=== PATIENT | female | born 1960 | race Caucasian/White ===

== ENCOUNTER → 2021-11-29 | Outpatient (CLI) | payer BC, SELFPAY ==
--- NOTE | 2021-11-29 12:31 | RAD_ITS ---
EXAM: XR CHEST, 2 VIEWS CLINICAL INDICATION: Chest pain/dyspnea TECHNIQUE: Frontal and lateral views of the chest. This report was created using [employer] report generation technology. COMPARISON: None. FINDINGS: LUNGS AND PLEURAL SPACES: Emphysema most prominent in the upper lungs. No pneumothorax. No effusion. HEART: Mild cardiomegaly. MEDIASTINUM: Central airways and mediastinal contour are unremarkable. BONES/JOINTS: Unremarkable. SOFT TISSUES: Unremarkable. RAD/Chest PA and Lateral IMPRESSION: 1. Mild cardiomegaly. 2. Emphysema most prominent in the upper lungs. Electronically Signed: Aryan Felix MD at 1:04 EDT ,
[2021-11-29 12:36] LABS: Absolute Lymphocyte Count 1.59 X10^3/uL (0.83-4.51); Absolute Neutrophil Count 3.1 X10^3/uL (2.0-7.7); Basophil# 0.02 X10^3/uL; Basophil% 0.4 % (0-1); Eosinophil# 0.08 X10^3/uL; Eosinophils% 1.6 % (0-5); Hematocrit 41.7 % (37-47); Hemoglobin 13.6 g/dL (12.0-15.0); Lymphocyte # 1.59 X10^3/ul (0.83-4.51); Lymphocyte % 31.4 % (19-41); Mean Corp Hgb Conc 32.6 g/dL (32-36); Mean Corpuscular Hgb 29.9 pg (27.0-32.0); Mean Corpuscular Volume 91.6 fL (81-99); Mean Platelet Vol. 10.2 fl (6.2-12.0); Monocyte# 0.27 X10^3/uL; Monocyte% 5.3 % (0-10); NRBC Flagged by Analyzer 0 % (0-5); Neutrophil % 61.1 % (47-70); Platelet Count 253 K/mm3 (150-450); RBC Distribution Width CV 12.3 % (11.6-14.6); RBC Distribution Width SD 41.1 fl (35.1-43.9); Red Blood Count 4.55 M/mm3 (4.2-5.4); White Blood Count 5.1 K/mm3 (4.4-11.0)
[2021-11-29 12:49] LABS: ALB/GLOB Ratio 0.9 RATIO (0.9-2.4); AST(SGOT) 26 U/L (15-37); Alanine Aminotransfer ALT/SGPT 46 U/L (13-56); Albumin, Serum 3.7 g/dL (3.2-5.0); Alkaline Phosphatase 60 U/L (45-117); Anion Gap 7 (5-15); BUN 12 mg/dL (7-18); BUN/Creat Ratio 13.1 RATIO (10-20); Calcium,Total 9.7 mg/dL (8.5-10.1); Chloride 106 mmol/L (98-107); Cholesterol 264 mg/dL (200); Creatinine, Serum 0.92 mg/dL (0.55-1.02); EST Glomerular Filtration Rate 66 mL/min (>60); Est Glom Filt Rate - Afr Amer 80 mL/min (>60); Free T3 2.6 pg/mL (2.18-3.98); Globulin 3.9 g/dL (2.2-4.2); Glucose 108 mg/dL (74-106); High Density Lipoprotein 33 mg/dL; Magnesium 2.1 mg/dL (1.6-2.6); Potassium 4.1 mmol/L (3.5-5.1); Protein, Total 7.6 g/dL (6.4-8.2); Sodium Level 141 mmol/L (136-145); T4 Free Direct 1.03 ng/dL (0.76-1.46); Thyroid Stim Hormone (TSH) 1.78 uIU/mL (0.358-3.74); Triglycerides 320 mg/dL; Very Low Density Lipoprotein 64 mg/dL (5-40)
[2021-11-29 12:57] LABS: Hemoglobin A1c 5.9 % (3.8-5.6)
[2021-11-29 13:10] LABS: Vitamin D,25 Hydroxy 33.9 ng/mL
== END | disposition home or self-care (01) ==
PROVIDERS: PCP Internal Medicine; Referring Provider Internal Medicine; Visit Provider Internal Medicine
DX: R07.9 Chest pain, unspecified (principal); F13.11 Sedative, hypnotic or anxiolytic abuse, in remission; Z87.891 Personal history of nicotine dependence; E78.00 Pure hypercholesterolemia, unspecified; I10 Essential (primary) hypertension
CPT/HCPCS: 36415; 71046; 80053; 80061; 82306; 83036; 83735; 84439; 84443; 84481; 85025

== ENCOUNTER → 2021-12-19 | Outpatient (CLI) | payer BC, SELFPAY ==
--- NOTE | 2021-12-19 12:45 | CT_ITS ---
STUDY: CT Chest W/O Contrast Injection 12/19/2021 2:55 PM REASON FOR EXAM: Female, 61 years old. Emphysema, former smoker, dyspnea Individualized dose optimization techniques were used for this CT. TECHNIQUE: Transaxial imaging was performed withoutIV contrast material. COMPARISON: None. FINDINGS: There are degenerative changes of the shoulders. There is no pneumothorax. There is no demonstrated pleural abnormality. There are calcifications of the coronary arteries. There is a small pericardial effusion. Normal mediastinum. Normal hilar regions. Normal pulmonary arteries. There is atherosclerotic calcification of the aortic arch with tortuosity and elongation of the aortic arch and descending thoracic aorta. There are multi-level degenerative changes of the thoracic spine. There are no acute findings of the upper abdomen. CT/Chest without Contrast IMPRESSION: There is a small pericardial effusion. Fatty liver There are calcifications of the coronary arteries. Electronically Signed: Paras Amado MD at 14:57 EDT ,
== END | disposition home or self-care (01) ==
LOC: CT 12:42
PROVIDERS: PCP Internal Medicine; Referring Provider Internal Medicine; Visit Provider Internal Medicine
DX: J43.9 Emphysema, unspecified (principal); Z87.891 Personal history of nicotine dependence
CPT/HCPCS: 71250

== ENCOUNTER → 2021-12-20 | Outpatient (CLI) | payer BC, SELFPAY ==
--- NOTE | 2021-12-20 11:49 | STRESSREP ---
Stress Test Report Myocardial perfusion stress test. 61-year-old lady with a history of chest pain. Stress protocol: Resting EKG demonstrates normal sinus rhythm with a rate of 85 bpm normal intervals are noted. 0.4 mg of regadenoson was infused according to regular protocol for a total duration of 1 minute. The maximum heart rate attained was 118 bpm which was 74% of max impacted heart rate the maximum workload was 1 metabolic equivalent. Patient maintained sinus rhythm throughout the recording with a left bundle branch block appearance. No acute changes were noted the peak blood pressure was 150/86 mmHg. Myocardial perfusion protocol. 11.9 mCi of technetium 99m sestamibi was injected stress images were obtained stress and rest images were reconstructed in comparing the short axis vertical long and horizontal long axis. Gated images were also obtained. Perfusion SPECT analysis: Review of the stress images demonstrated dilated cardiac silhouette size. There is mild reduction of perfusion noted in the anterior septal wall on the stress and resting images. A previous anteroseptal infarct cannot be excluded. The rest of the farrell appear to be well perfused. The above is suggestive of a cardiomyopathy. Gated SPECT analysis: The gated ejection fraction is 24%. Conclusion: Dilated cardiomyopathy. Previous anteroseptal infarct cannot be excluded.
== END | disposition home or self-care (01) ==
LOC: CVS 06:32
PROVIDERS: PCP Internal Medicine; Referring Provider Internal Medicine; Visit Provider Internal Medicine
DX: I25.10 Atherosclerotic heart disease of native coronary artery without angina pectoris (principal); Z87.891 Personal history of nicotine dependence; R07.9 Chest pain, unspecified; I10 Essential (primary) hypertension; E78.00 Pure hypercholesterolemia, unspecified
CPT/HCPCS: 78452; 93017; A9500; A4216; J2785

== ENCOUNTER → 2021-12-24 | Outpatient (CLI) | payer BC, SELFPAY ==
[2021-12-24 17:19] LABS: Absolute Lymphocyte Count 1.92 X10^3/uL (0.83-4.51); Absolute Neutrophil Count 4.5 X10^3/uL (2.0-7.7); Basophil# 0.04 X10^3/uL; Basophil% 0.6 % (0-1); Eosinophil# 0.15 X10^3/uL; Eosinophils% 2.1 % (0-5); Hematocrit 42.1 % (37-47); Lymphocyte # 1.92 X10^3/ul (0.83-4.51); Mean Corp Hgb Conc 33.3 g/dL (32-36); Mean Corpuscular Hgb 30.1 pg (27.0-32.0); Mean Corpuscular Volume 90.5 fL (81-99); Mean Platelet Vol. 10.1 fl (6.2-12.0); Monocyte# 0.48 X10^3/uL; Monocyte% 6.7 % (0-10); NRBC Flagged by Analyzer 0 % (0-5); Neutrophil % 63.2 % (47-70); Platelet Count 321 K/mm3 (150-450); RBC Distribution Width CV 12.6 % (11.6-14.6); Red Blood Count 4.65 M/mm3 (4.2-5.4); White Blood Count 7.1 K/mm3 (4.4-11.0)
[2021-12-24 18:20] LABS: Anion Gap 5 (5-15); BUN 17 mg/dL (7-18); BUN/Creat Ratio 17.3 RATIO (10-20); Calcium,Total 9.6 mg/dL (8.5-10.1); Chloride 107 mmol/L (98-107); Creatinine, Serum 0.98 mg/dL (0.55-1.02); EST Glomerular Filtration Rate 61 mL/min (>60); Est Glom Filt Rate - Afr Amer 74 mL/min (>60); Glucose 99 mg/dL (74-106); Potassium 4.2 mmol/L (3.5-5.1); Sodium Level 140 mmol/L (136-145)
== END | disposition home or self-care (01) ==
PROVIDERS: PCP Internal Medicine; Visit Provider Internal Medicine Cardiovascular Disease
DX: I10 Essential (primary) hypertension (principal); I42.0 Dilated cardiomyopathy
CPT/HCPCS: 36415; 80048; 85025

== ENCOUNTER → 2021-12-25 | Outpatient (CLI) | payer BC, SELFPAY ==
--- NOTE | 2021-12-25 08:54 | ECHOD_ITS ---
Reason For Study: OTHER Procedure This was a 2D Doppler, Color Flow transthoracic echocardiogram. Exam performed in department. Left Ventricle Normal LV size. Severe global left ventricular systolic dysfunction. Stage 2 diastolic dysfunction. The estimated ejection fraction is 20 %. There is severe global hypokinesis of the left ventricle. Right Ventricle Normal RV size. Normal systolic function. Atria Normal left atrium. Normal right atrium. Mitral Valve Bileaflet diffuse mitral valve thickening. Mild-Moderate (1-2+) eccentric mitral valve insufficiency. Tricuspid Valve Normal tricuspid valve. Mild to moderate (1-2+) tricuspid valve insufficiency. Pulmonary artery systolic pressure is 38 mmHg. Aortic Valve Normal aortic valve. Pulmonic Valve Normal pulmonic valve. Great Vessels Normal aortic root. The pulmonary artery is normal size. Normal inferior vena cava. Pericardium/Pleural No pericardial effusion. MMode/2D Measurements & Calculations RVDd: 2.7 cm Ao root diam: 3.0 cm LAV(MOD-bp): 60.3 ml LAV(MOD-bp) Indexed: 30.5 ml/m2 LAV(MOD-sp2): 74.6 ml LAV(MOD-sp4): 43.8 ml SV(MOD-sp4): 43.3 ml SV(sp4-el): 41.7 ml LVAd ap4: 35.7 cm2 LVLd ap4: 7.4 cm EDV(MOD-sp4): 142.6 ml EDV(sp4-el): 145.9 ml LVAs ap4: 28.9 cm2 LVLs ap4: 6.8 cm ESV(MOD-sp4): 99.3 ml ESV(sp4-el): 104.2 ml EF(MOD-sp4): 30.4 % EF(sp4-el): 28.6 % LA A4 area: 16.8 cm2 RA A4 area: 10.9 cm2 Doppler Measurements & Calculations MV E max javier: 88.5 cm/sec Med Peak E' Javier: 3.7 cm/sec Ao V2 max: 105.9 cm/sec MV A max javier: 72.2 cm/sec E/E' med: 23.6 Ao max P.5 mmHg MV E/A: 1.2 LV V1 max: 66.3 cm/sec MR max javier: 458.1 cm/sec PA V2 max: 75.1 cm/sec LV V1 max P.8 mmHg MR max P.0 mmHg MR mean javier: 350.2 cm/sec MR mean P.8 mmHg MR VTI: 167.1 cm TR max javier: 294.7 cm/sec TR max P.7 mmHg ECHO/Echo Complete Interpretation Summary Normal LV size. Severe global left ventricular systolic dysfunction. Stage 2 diastolic dysfunction. Pulmonary artery systolic pressure is 38 mmHg. The estimated ejection fraction is 20 %. Ordering Physician: Xenia Mesa Referring Physician: Xenia Mesa Performed By: Meaghan Calle RCS
== END | disposition home or self-care (01) ==
LOC: CVS 08:53
PROVIDERS: PCP Internal Medicine; Referring Provider Internal Medicine; Visit Provider Internal Medicine
DX: I31.3 Pericardial effusion (noninflammatory) (principal)
CPT/HCPCS: 93306

== ENCOUNTER → 2021-12-28 | Outpatient (CLI) | payer BC, SELFPAY ==
--- NOTE | 2021-12-29 07:32 | PFT ---
INTRODUCTION: The patient is a 61-year-old female that presents for pulmonary function studies secondary to a diagnosis of emphysema. Respiratory therapy reported good patient effort. Bronchodilators were used during testing. Forced expiration spirometry demonstrates INTERPRETATION: No evidence of a large airways obstructive ventilatory defect. There was no significant response to aerosolized bronchodilators. Spirograms are of good quality and plateau normally. Body plethysmography was performed and revealed an elevated TLC and RV. Diffusing capacity by single breath CO is reduced at 64% of predicted. IMPRESSION: No evidence of COPD or significant bronchodilator response. Diffusing capacity is mildly reduced.
== END | disposition home or self-care (01) ==
LOC: PSN 12:44
PROVIDERS: PCP Internal Medicine; Referring Provider Internal Medicine; Visit Provider Internal Medicine
DX: J43.9 Emphysema, unspecified (principal); Z87.891 Personal history of nicotine dependence
CPT/HCPCS: 94060; 94726; 94729

== ENCOUNTER 2021-12-31 18:02 | Observation (INO) | payer BC, SELFPAY ==
[2021-12-28 08:32] VITALS: BMI 29.7
[2021-12-31] VITALS (13 sets, daily range): BP systolic 137–165; BP diastolic 90–114; PULSE 82–100; RESP 16–20; TEMP 36.7–37; O2SAT 97–100
--- NOTE | 2021-12-31 12:40 | CL.D_ITS ---
Patient Name: SERGIO STOUT Study Date: 12/31/2021 Performing: Tyler Reinoso MD Ht: 66.93 inches 170 cm : 1960 Wt: 189.6 lbs 86 kg Age: 61 Gender: female BSA: 1.98 PROCEDURE(S) PERFORMED DC01-(75096)LHC/COR/LV IC12-(67436/C9600)RENAY W/WO PTCA, SINGLE CORONARY ARTERY IC13-(59982/C9600)RENAY W/WO PTCA, EACH ADD'L ART, SAME MAJOR CLINICAL PROFILE AND INDICATIONS Indications: Suspected CAD Heart Failure: None Stress/Imaging Date: 12/20/21Stress Test with SPECT MPI: Positive Intermediate Risk CAD Presentations: Symptom unlikely to be ischemic. CONCLUSIONS Severe disease noted involving the left anterior descending artery and first diagonal vessel with a c ardiomyopathy out of proportion to the extent of the coronary artery disease RECOMMENDATIONS Referred for immediate PCI DESCRIPTION OF PROCEDURE The patient arrived to the procedure lab. The risks and benefits of the procedure as well as a full d escription of our services here and current unavailability of surgical backup were fully explained to the patient and/or their significant other prior to the catheterization. The Timeout was completed, verifying the correct patient and procedure. The patient's procedural site was prepped and draped in the usual fashion. Local anesthetic was given subcutaneously to right radial region with Lidocaine 2% . Using a modified Seldinger technique, arterial access was obtained via the right radial artery, a 6 Fr sheath was inserted. Left Coronary Artery selective angiography was performed in multiple views u sing a 5 Fr. 4.0 Silverado catheter. Right Coronary Artery selective angiography was then performed in mu ltiple views using a 5 Fr. 4.0 Silverado catheter. Left Ventriculography was performed in ANSARI projection using a 5 Fr. Pigtail catheter. LV to AO pullback pressures were then recorded. CORONARY ANGIOGRAPHY DOMINANCE: Right Dominant LEFT HEART ASSESSMENT Left Ventricular Ejection Fraction: by LV Gram 20 % Global Hypokinesis - Severe Depressed Left Ventricular systolic function LEFT MAIN: Angiographically normal LEFT ANTERIOR DESCENDING ARTERY: Mid segment 70 to 80% long stenosis occlusion noted DIAGONAL 1: Proximal - Long 70 to 80% proximal stenosis noted CIRCUMFLEX ARTERY: Mild luminal irregularities less than 30% RIGHT CORONARY ARTERY: Mild luminal irregularities COMPLICATIONS PROCEDURE MEDICATIONS Versed 1 mg IV Fentanyl 50 mcg IV Versed 1 mg IV Versed 1 mg IV Oxygen: 2 L/min via nasal cannula Brilinta 180 mg PO @ 12/31/2021 12:17:37 Heparin given IA 12/31/2021 12:01:51 Heparin 7000 unit(s) IV 12/31/2021 13:01:46 Verapamil 2.5mg, Ntg 100mcgs, 3000 units of Heparin given IA 12/31/2021 12:01:51 SUMMARY OF HEMODYNAMIC DATA Time AIR REST ECG 10:15:17 AO 120/76 (93) SA 12:04:09 LV 126/12, 23 12:14:53 LV 126/14, 27 12:15:47 LVp 129/14, 26 12:15:53 AOp 132/79 (101) 12:15:58 Signed By Tyler Reinoso MD On 12/31/2021 1:09:11 PM Signed By Tyler Reinoso MD On 12/31/2021 12:39:58 PM Tyler Reinoso MD
--- NOTE | 2021-12-31 15:20 | PCI.CARDCATH ---
PCI Cardiac Cath Report PCI Report: PCI cardiac cath report; 1. Successful PCI of mid LAD 75% stenosis with reduction of stenosis to 0% With primary stenting using 2.75 x around 75% stenosis long segment The first diagonal branch proximal had a long segment of around 75% proximal stenosis. The left circumflex had mild luminal irregularities of around 30% The right coronary artery is large abdominal mm drug-eluting stent/RENAY/Orsiro Stratton postdilated with 3 x 20 mm NC Emerge balloon and maintenance of ZA III flow 2. Successful PCI of large diagonal branch/D1 primary stenting with drug-eluting stent/RENAY/Orsiro patient 2.75 x 22 mm, with reduction of stenosis from 75% to 0% Postdilated using 3 x 20 mm NC balloon, with reduction of stenosis to 0% and maintenance of ZA-3 flow. 3. Placement of TR band to close the right radial artery arteriotomy site. 4. Selective right common femoral artery angiography and use of Perclose to close the right common femoral artery arteriotomy site. Preprocedure diagnosis; 60-year-old patient with severe cardiomyopathy and has significant severe disease involving the mid left anterior descending artery and the proximal diagonal branch/D1 Patient had a history of cardiomyopathy with left ventricular ejection fraction by left ventriculogram 20% with global LV hypokinesia Patient underwent cardiac catheterization by the primary technical training specialist Dr. Reinoso Findings reviewed and discussed with Dr. Reinoso Left main coronary artery normal angiographically bifurcating into LAD and left circumflex Left anterior descending artery in the midsegment had a diffuse, 75% stenosis The 30s diagonal branch had proximal diffuse disease of 70 to 80% stenosis. The left circumflex artery had a luminal irregularity proximally which is around 30% and the right coronary artery is dominant with mild luminal irregularity. Patient has a presentation with shortness of breath which is equivalent to angina. Interventional equipment; 1. 6 Malaysian sheath in the right common femoral artery 2. 6 Malaysian EBU guide catheter 3. 0.014 BMW universal straight 190 cm guidewire #4 0.014 Ht whisper and a sister at 190 cm 5. 0.014 run-through extra floppy 180 cm straight wire. 5. 2.75 x 26 mm drug-eluting stent/Orsiro 6. 2.75 x 22 mm drug-eluting stent/Orsiro 7. 3 x 20 mm NC Emerge balloon Medication used in the Resident Assistant Cna; 1. Nitroglycerin NC 2. Heparin infusion 3. Acceptable ACT level 4. Patient was given Brilinta and aspirin in the Resident Assistant Cna Access; 6 Malaysian sheath placed the right common femoral artery Under fluoroscopic guidance we will proceed with 6 Malaysian JR4 guide catheter advanced sending aorta cannulated the left main without difficulty Then we used 2 wires used whisper wire and across the lesion into the LAD and we used run-through wire and placed across lesion of 30 diagonal branch Then we proceed with primary stenting of the mid LAD lesion using the 2.75 x 26 mm drug-eluting stent followed by postdilatation using 3 x 20 mm NC Emerge balloon and achieve an excellent result Following this we will proceed with the PCI to the sidebranch which is a D1 and we proceed with a primary stenting using 2.75 x 22 mm drug-eluting stent/RENAY/Orsirio. The patient tolerated the procedure well with no complication in the Resident Assistant Cna and no symptoms of chest pain and stable hemodynamically and no change in the bus monitor Conclusion recommendations; 1. Successful PCI of the mid LAD as described 2. Successful PCI of the sidebranch diagonal D1 3. Complex patient with severe dilated cardiomyopathy however the coronary arteries have been dealt and managed appropriately 4. Selective right common femoral artery angiography and placement of Perclose to close the right common femoral artery arteriotomy site No complication in the Resident Assistant Cna #5 patient to continue on dual antiplatelet therapy with Brilinta and aspirin for nearly 1 year 6. Patient scheduled for phase 1 cardiac rehab program 7. Patient will follow up with her primary technical training specialist Dr. Reinoso for continuation of cardiac care plan. Alex Rodriguez MD,FAC,[facility]
[2021-12-31] MEDS: 0.9% Normal Saline 1,000 ML 25 ML IV (16:13)
[2022-01-01] MEDS: 0.9% Saline Lock 10 ML Syringe IV (00:03)
[2022-01-01 02:00] VITALS: BP 127/75; PULSE 84; RESP 16; TEMP 36.7; O2SAT 97
[2022-01-01 03:00] VITALS: PULSE 79
[2022-01-01 06:38] LABS: Hematocrit 45.5 % (37-47); Hemoglobin 14.1 g/dL (12.0-15.0); Mean Corpuscular Hgb 30.4 pg (27.0-32.0); Mean Corpuscular Volume 98.1 fL (81-99); Mean Platelet Vol. 9.7 fl (6.2-12.0); Platelet Count 231 K/mm3 (150-450); RBC Distribution Width CV 12.8 % (11.6-14.6); Red Blood Count 4.64 M/mm3 (4.2-5.4); White Blood Count 9.8 K/mm3 (4.4-11.0)
[2022-01-01 07:22] LABS: ALB/GLOB Ratio 0.8 RATIO (0.9-2.4); AST(SGOT) 38 U/L (15-37); Alanine Aminotransfer ALT/SGPT 37 U/L (13-56); Albumin, Serum 3.2 g/dL (3.2-5.0); Alkaline Phosphatase 59 U/L (45-117); Anion Gap 12 (5-15); BUN 11 mg/dL (7-18); BUN/Creat Ratio 13.3 RATIO (10-20); Calcium,Total 8.7 mg/dL (8.5-10.1); Chloride 106 mmol/L (98-107); Creatinine, Serum 0.83 mg/dL (0.55-1.02); EST Glomerular Filtration Rate 74 mL/min (>60); Est Glom Filt Rate - Afr Amer 90 mL/min (>60); Estimated Creatinine Clearance 69.22 ml/min; Globulin 3.9 g/dL (2.2-4.2); Glucose 133 mg/dL (74-106); Protein, Total 7.1 g/dL (6.4-8.2); Sodium Level 138 mmol/L (136-145)
[2022-01-01 07:23] VITALS: PULSE 96
[2022-01-01 07:43] VITALS: O2SAT 95
[2022-01-01 08:00] VITALS: BP 112/70; PULSE 91; RESP 16; TEMP 36.6; O2SAT 97
[2022-01-01] MEDS: Aspirin E.C. 81 MG Tablet PO (08:10)
[2022-01-01 09:07] LABS: Magnesium 2.3 mg/dL (1.6-2.6)
--- NOTE | 2022-01-01 10:00 | EKG12_ITS ---
Test Reason : AM EKG Blood Pressure : / mmHG Vent. Rate : 080 BPM Atrial Rate : 080 BPM P-R Int : 196 ms QRS Dur : 150 ms QT Int : 442 ms P-R-T Axes : 019 -33 069 degrees QTc Int : 509 ms Normal sinus rhythm Left axis deviation Left bundle branch block Abnormal ECG Confirmed by RUBIO WOODY, HAILY ([id number]), art editor MARTINE ANDREWS ([id number]) on 01/02/2022 9:37:42 AM Referred By: Tyler Reinoso Confirmed By:HAILY BERGERON MD
[2022-01-01] MEDS: Lisinopril 10 MG Tablet PO (11:00)
[2022-01-01] MEDS: Potassium Chloride Oral Tablet 20 MEQ 40 MEQ PO (11:00)
[2022-01-01] MEDS: Carvedilol 3.125 MG TABLET PO (11:01)
[2022-01-01] MEDS: Furosemide 40 MG Tablet PO (11:01)
[2022-01-01] MEDS: Multivitamins,Ther W-Minerals Tablet 1 TABLET PO (11:01)
[2022-01-01] MEDS: Atorvastatin Calcium 20 MG Tablet PO (11:01)
[2022-01-01] MEDS: TICAGRELOR 90 MG TABLET PO (11:07)
--- NOTE | 2022-01-01 11:42 | PN.CARD_ITS ---
Subjective Subjective Patient seen and evaluated. Appears to be doing well and stable. Objective Data Vital Signs: Vital Signs Temp Pulse Resp BP Pulse Ox 97.9 F 91 16 112/70 97 01/01/22 08:00 01/01/22 08:00 01/01/22 08:00 01/01/22 08:00 01/01/22 08:00 Oxygen Flow Rate (L/min) 2 Oxygen Delivery Method Room Air Weight: 190 lb Body Mass Index (BMI) 29.7 Intake & Output: Intake and Output for Last 24 Hours 12/30/21 12/31/21 01/01/22 23:59 23:59 23:59 Intake Total 1270 / 1464.58 584.58 / 584.58 Output Total 800 / 800 300 / 300 Balance 470 / 664.58 284.58 / 284.58 Lab / Micro Data Attestation: I reviewed the patient's lab results. Result Diagrams: 01/01/22 06:25 01/01/22 06:25 Labs: Laboratory Results - last 24 hr 01/01/22 06:25: WBC 9.8, RBC 4.64, Hgb 14.1, Hct 45.5, MCV 98.1, MCH 30.4, MCHC 31.0 L, RDW Std Deviation 46.0 H, RDW Coeff of Laura 12.8, Plt Count 231, MPV 9.7 01/01/22 06:25: Sodium 138, Potassium 3.0 L, Chloride 106, Carbon Dioxide 20.0 L , Anion Gap 12, BUN 11, Creatinine 0.83, Estim Creat Clear Calc 69.22, Est GFR (MDRD) Af Amer 90, Est GFR (MDRD) Non-Af 74, BUN/Creatinine Ratio 13.3, Glucose 133 H, Calcium 8.7, Total Bilirubin 0.60, AST 38 H, ALT 37, Alkaline Phosphatase 59, Total Protein 7.1, Albumin 3.2, Globulin 3.9, Albumin/Globulin Ratio 0.8 L 01/01/22 08:25: Magnesium 2.3 Cardiology Labs/Tests 01/01/22 06:25: WBC 9.8, RBC 4.64, Hgb 14.1, Hct 45.5, MCV 98.1, MCH 30.4, MCHC 31.0 L, Plt Count 231, MPV 9.7 01/01/22 06:25: Sodium 138, Potassium 3.0 L, Chloride 106, Carbon Dioxide 20.0 L , Anion Gap 12, BUN 11, Creatinine 0.83, Est GFR (MDRD) Af Amer 90, Est GFR (MDRD) Non-Af 74, BUN/Creatinine Ratio 13.3, Glucose 133 H, Calcium 8.7, Total Bilirubin 0.60 01/01/22 08:25: Magnesium 2.3 Rhythm: EKG: ECHO: Stress Test: Cardiac Cath: PCI: CT Surgery: Holter monitor: EPS: PPM: CXR: Chest CT Scan: Assessment & Plan Assessment/Plan (1) Dilated cardiomyopathy: PLAN: She does have a dilated cardiomyopathy. The plan will be for her to continue with guideline directed medical therapy with beta-griffin, ARB or Entresto and a diuretic. I would also like to institute an SGLT2 inhibitor. This appears to be out of proportion to the extent of her coronary disease. (2) History of coronary artery stent placement: PLAN: She is status post angioplasty and stenting of the left anterior descending artery and diagonal vessel. She will continue with risk factor modification and I would also suggest that she start cardiac rehabilitation. (3) Essential hypertension: PLAN: She does have a history of hypertension. Her blood pressure is under good control at this time I would not recommend we make any other changes.
--- NOTE | 2022-01-01 11:45 | DCINST_ITS ---
Discharge Instructions Diet Discharge Diet: No restrictions and Low fat / Low cholesterol Follow Up Care When: My office will call you for follow-up appointment. Test Results: Test results from this visit will be discussed in further detail at your follow- up appointment, if applicable. Discharge Plan Admission Admit Date/Time: 12/31/21 18:02 Attending Provider: Tyler Reinoso Primary Care Provider: Xenia Mesa Discharge Orders/Prescriptions Prescriptions: New Brilinta 90 mg Tablet 90 mg PO BID Qty: 180 3RF Continued zinc 50 mg tablet 50 mg PO DAILY prenat.vits,chema,egk-yjfw-ltolh Tablet 1 tab PO DAILY Airborne Elderberry 1,000 mg-50 mg-35.5 mg tablet, effervescent PO Hair,Skin and Nails Tablet 1 tab PO DAILY furosemide [Lasix] 40 mg tablet 40 mg PO DAILY Qty: 90 3RF atorvastatin [Lipitor] 20 mg tablet 20 mg PO DAILY Qty: 90 3RF aspirin [Adult Aspirin Regimen] 81 mg tablet,delayed release (DR/EC) 81 mg PO DAILY lisinopril 10 mg tablet 10 mg PO DAILY Qty: 30 2RF carvedilol 3.125 mg tablet 3.125 mg PO BID Qty: 60 2RF Rx Instructions: must administer with a meal/food Referrals / Follow Up: Xenia Mesa MD [Primary Care Provider] - Disposition Disposition (needs filled in before D/C Order can be placed): Home, Self Care
--- NOTE | 2022-01-01 12:04 | CASEMGMT ---
Pt to be sent home on Brilinta and med e-scribed to [facility] pharmacy. Call to [facility] and per tech, pt has no co-pay for Brilinta at this time. Pt updated by [facility] pharmacist and she will notify pt with consult. Shawn PARKER CM
--- NOTE | 2022-01-01 12:13 | PHA.DC.MC ---
Pharmacy Service has performed discharge medication reconciliation and counseling for this patient. This [facility] notified patient that there is no co-pay for Brilinta at this time per RN CM. 1. TICAGRELOR 90MG PO BID The patient's discharge medication list was reviewed for discrepancies and discrepancies were resolved. Home Medications multivitamin with minerals (Hair,Skin and Nails) 1 tab PO DAILY 11/29/21 mv-min-vit C 1,000 mg-elderberry 50 mg-herb 35.5mg effervescent tablet (Airborne Elderberry) ea PO 11/29/21 prenat.vits,chema,hyb-gvnb-gytke 1 tab PO DAILY 11/29/21 zinc 50 mg tablet 50 mg PO DAILY 11/29/21 carvedilol 3.125 mg tablet 3.125 mg PO BID #60 tabs 12/20/21 lisinopril 10 mg tablet 10 mg PO DAILY #30 tabs 12/20/21 aspirin 81 mg tablet,delayed release (Adult Aspirin Regimen) 81 mg PO DAILY for heart cath 12/24/21 atorvastatin 20 mg tablet (Lipitor) 20 mg PO DAILY #90 tabs 12/24/21 furosemide 40 mg tablet (Lasix) 40 mg PO DAILY #90 tabs 12/24/21 ticagrelor 90 mg tablet (Brilinta) 90 mg PO BID #180 tabs 01/01/22 The patient was counseled on the following discharge medications and changes in medications for homegoing were reviewed. The Reason for Use, instructions for use, and potential side effects were reviewed for all new medications. The patient's questions regarding all of their medications were answered. The patient was able to verbally demonstrate an understanding of their discharge medications.
--- NOTE | 2022-01-01 13:06 | CRPHASE1_ITS ---
Patient Communication Former Patient:: Phase I Guide to Cardiac Rehab Given to Patient:: Yes Cardiac Rehab Facility Choice List Given to Patient:: No Cardiac Rehabilitation Info Cardiac Rehabilitation Program Information: Cardiac Rehabilitation is important for patients like you who are recovering from a heart problem. Cardiac rehabilitation programs are recognized as integral to the continued care of the patient with coronary heart disease. The cardiac rehabilitation program is designed to optimize a patient's physical, psychological, and social functioning. Health health care specialist work in cardiac rehabilitation programs and assist you with getting the treatments you need to get stronger and healthier - like exercise, healthy eating habits, and medications. Cardiac rehabilitation has been show to help people with heart problems live longer and have better life enjoyment than people who do not go to cardiac rehabilitation. Please contact the Cardiac Rehabilitation Program at [facility] at in two weeks if you have not heard from them.
--- NOTE | 2022-01-01 13:08 | CRPH1.INSTRU ---
General Education CAD and cardiac anatomy and function:: Patient communicates acknowledgment, Needs reinforcement Explanation of diagnoses and procedures:: Patient communicates acknowledgment, Needs reinforcement Sign/Symptoms of MO:: Patient communicates acknowledgment Antiplatelet therapy: Patient communicates acknowledgment Proper use of NTG-SL: Patient communicates acknowledgment Emergency procedures and activation of EMS: Patient communicates acknowledgment Compliance of all prescribed medications: Patient communicates acknowledgment Smoking Recommendations Include:: Previous smoker; encourage continued cessation Nicotine/Smoking Response Code:: Patient communicates acknowledgment Dyslipidemia Patient Dyslipidemia Risk Factors Are:: Total Cholesterol, Triglycerides, HDL, LDL Recommendations Include:: Lipid profile not available Dyslipidemia Response Code:: Patient communicates acknowledgment Overweight/Obesity Patient Overweight/Obesity Risk Factors Are:: Overweight = 26-29 Recommendations Include:: Weight loss of 5-10% Overweight/Obesity:: Patient communicates acknowledgment Hypertension Recommendations Include:: Maintain BP <130/85 Hypertension:: Patient communicates acknowledgment Heart Disease Patient Heart Disease Risk Factors Are:: Previous cardiac event Recommendations Include:: Educated family members of their risk Heart Disease Response Code:: Patient communicates acknowledgment Diabetes Patient Diabetes Risk Factors Are:: No documented hx of diabetes Metabolic Syndrome Patient Metabolic Syndrome Risk Factors Are [3 of 5]:: High triglyceride >150, Hypertension Recommendations Include:: Reinforce compliance to risk factor modifications Metabolic Syndrome Response Code:: Patient communicates acknowledgment Sedentary Patient Sedentary Risk Factors Are:: Lack of regular exercise Recommendations Include:: Aerobic exercise 5-7 times/week for 20-30 minutes continuously, Benefits of regular exercise, Discussed home walking program, Monitored Outpatient Cardiac Rehab Sedentary Response Code:: Patient communicates acknowledgment Stress Recommendations Include:: Identification of stressors, and assessment of coping skills, Stress management techniques Stress Response Code:: Patient communicates acknowledgment
== END 2022-01-01 14:17 | disposition home or self-care (01) ==
LOC: CLSP 18:07 → PCU 18:08
PROVIDERS: Internal Medicine Interventional Cardiology; Admitting Provider Internal Medicine Cardiovascular Disease; PCP Internal Medicine; Referring Provider Internal Medicine Cardiovascular Disease; Visit Provider Internal Medicine Cardiovascular Disease
DX: I25.10 Atherosclerotic heart disease of native coronary artery without angina pectoris (principal); I42.0 Dilated cardiomyopathy; Z79.82 Long term (current) use of aspirin; Z79.899 Other long term (current) drug therapy; I10 Essential (primary) hypertension; E78.5 Hyperlipidemia, unspecified; Z87.891 Personal history of nicotine dependence; Z86.16 Personal history of COVID-19; I44.7 Left bundle-branch block, unspecified
CPT/HCPCS: 36415; 80053; 83735; 85027; 92928; 92929; 93005; 93458; 99152; 99153; 99218; C1874; J7030; J7040; Q9967; A4216; C1725; C1760; C1769; C1887; C1894; C9600; C9601; G0378; J1940

== ENCOUNTER → 2022-01-04 | Outpatient (CLI) | payer BC, SELFPAY | END | disposition home or self-care (01) | LOC: SL 19:56 | PROVIDERS: PCP Internal Medicine; Referring Provider Otolaryngology; Visit Provider Otolaryngology | DX: G47.33 Obstructive sleep apnea (adult) (pediatric) (principal); R06.83 Snoring | CPT/HCPCS: 95811 ==

== ENCOUNTER → 2022-01-22 | Outpatient (CLI) | payer BC, SELFPAY | END | disposition home or self-care (01) | LOC: CR 06:53 | PROVIDERS: PCP Internal Medicine; Referring Provider Internal Medicine Cardiovascular Disease; Visit Provider Internal Medicine Cardiovascular Disease | DX: Z95.5 Presence of coronary angioplasty implant and graft (principal) ==

== ENCOUNTER → 2022-02-04 | Outpatient (CLI) | payer BC, SELFPAY ==
[2022-02-04 15:26] LABS: Anion Gap 7 (5-15); BUN 19 mg/dL (7-18); BUN/Creat Ratio 18.6 RATIO (10-20); Calcium,Total 9.8 mg/dL (8.5-10.1); Chloride 103 mmol/L (98-107); Creatinine, Serum 1.02 mg/dL (0.55-1.02); EST Glomerular Filtration Rate 59 mL/min (>60); Est Glom Filt Rate - Afr Amer 71 mL/min (>60); Glucose 105 mg/dL (74-106); Potassium 3.4 mmol/L (3.5-5.1); Sodium Level 140 mmol/L (136-145)
== END | disposition home or self-care (01) ==
LOC: LAB 14:41
PROVIDERS: PCP Internal Medicine; Visit Provider Nurse Practitioner Gerontology
DX: I42.0 Dilated cardiomyopathy (principal)
CPT/HCPCS: 36415; 80048

== ENCOUNTER → 2022-04-18 | Outpatient (CLI) | payer BC, SELFPAY ==
--- NOTE | 2022-04-18 14:32 | ECHOL_ITS ---
Reason For Study: CMP Procedure This was a limited 2D transthoracic echocardiogram. Limited views were obtained. Exam performed in department. Left Ventricle Normal LV size. Left ventricular systolic function is normal. The estimated ejection fraction is 50 %. There is borderline global hypokinesis of the left ventricle. Right Ventricle Normal RV size. Normal systolic function. Atria Normal left atrium. Normal right atrium. Mitral Valve Normal mitral valve. Tricuspid Valve Normal tricuspid valve. Aortic Valve Trisinus/trileaflet aortic valve. Pulmonic Valve Normal pulmonic valve. Great Vessels Normal aortic root. The pulmonary artery is normal size. Normal inferior vena cava. Pericardium/Pleural No pericardial effusion. MMode/2D Measurements & Calculations LVIDd: 5.6 cm IVSd: 0.89 cm Ao root diam: 3.4 cm LVIDs: 4.1 cm LVPWd: 1.1 cm LA dimension: 3.7 cm FS: 27.5 % LAV(MOD-bp): 39.1 ml LVAd ap4: 34.4 cm2 SV(MOD-sp4): 53.0 ml LAV(MOD-bp) Indexed: 20.0 ml/m2 LVLd ap4: 8.5 cm LAV(MOD-sp2): 39.3 ml EDV(MOD-sp4): 115.1 ml LAV(MOD-sp4): 30.8 ml EDV(sp4-el): 118.2 ml LVAs ap4: 24.7 cm2 LVLs ap4: 8.0 cm ESV(MOD-sp4): 62.0 ml ESV(sp4-el): 64.7 ml EF(MOD-sp4): 46.1 % EF(sp4-el): 45.3 % SV(sp4-el): 53.5 ml LA A4 area: 12.8 cm2 Doppler Measurements & Calculations Lat Peak E' Javier: 4.3 cm/sec Med Peak E' Javier: 5.2 cm/sec ECHO/Echo, Limited Study Interpretation Summary Normal LV size. Left ventricular systolic function is normal. The estimated ejection fraction is 50 %. There is borderline global hypokinesis of the left ventricle. Compared to previous study, the left ventricular systolic function has improved .. Ordering Physician: Stefanie Mendoza Referring Physician: Xenia Mesa Performed By: Chi Craft RCS
== END | disposition home or self-care (01) ==
LOC: CVS 14:32
PROVIDERS: PCP Internal Medicine; Referring Provider Nurse Practitioner Gerontology; Visit Provider Nurse Practitioner Gerontology
DX: I42.0 Dilated cardiomyopathy (principal)
CPT/HCPCS: 93308

== ENCOUNTER → 2023-01-10 | Outpatient (CLI) | payer BC, SELFPAY ==
[2023-01-10 10:53] LABS: AST(SGOT) 25 U/L (15-37); Alanine Aminotransfer ALT/SGPT 37 U/L (13-56); Albumin, Serum 3.7 g/dL (3.2-5.0); Alkaline Phosphatase 78 U/L (45-117); Bilirubin, Direct 0.15 mg/dL (0.00-0.30); Cholesterol 170 mg/dL (200); Globulin 3.9 g/dL (2.2-4.2); High Density Lipoprotein 41 mg/dL; Protein, Total 7.6 g/dL (6.4-8.2); Triglycerides 249 mg/dL; Very Low Density Lipoprotein 50 mg/dL (5-40)
--- NOTE | 2023-01-10 17:20 | STRESSREP ---
Stress Test Report Is pharmacologic myocardial perfusion stress test. 62-year-old lady with a history of coronary artery disease Resting EKG demonstrates sinus rhythm with a rate of 62 bpm. Resting blood pressure is 108/62 mmHg. 0.4 mg of regadenoson was infused per usual protocol followed by rapid intravenous saline flush injection. Continuous EKG monitoring was performed. The maximum heart rate was 85 bpm which was 53% of max impacted heart rate the maximum workload was 1 metabolic equivalent. At rest there were no ST or T wave changes noted to suggest ischemia and at peak infusion nonspecific ST changes were noted which did not meet the criteria for ischemia. No clinical angina is noted. The final blood pressure was 106/78 mmHg. Myocardial perfusion protocol. 11.5 mCi of technetium 99m sestamibi was injected at rest. 0.4 mg of regadenoson was infused per usual protocol. At peak infusion 36 mCi of technetium 99m sestamibi was injected stress images were obtained stress and rest images were reconstructed and compared in the short axis vertical long and horizontal long axis. Gated images were also obtained. Perfusion SPECT analysis: Review of the stress images demonstrate normal uptake of tracer noted in all areas of the myocardium. The resting images similar demonstrated normal uptake of tracer noted in all areas of the myocardium. No areas of reversibility are noted to suggest ischemia and no previous infarct is noted. Gated SPECT analysis: The gated ejection fraction is 71%. Conclusion: Normal pharmacologic myocardial perfusion stress test. Preserved ejection fraction.
== END | disposition home or self-care (01) ==
PROVIDERS: PCP Internal Medicine; Referring Provider Internal Medicine Cardiovascular Disease; Visit Provider Internal Medicine Cardiovascular Disease
DX: I25.10 Atherosclerotic heart disease of native coronary artery without angina pectoris (principal); Z95.5 Presence of coronary angioplasty implant and graft
CPT/HCPCS: 36415; 78452; 80061; 80076; 93017; A9500; A4216; J2785

== ENCOUNTER → 2023-05-28 | Outpatient (CLI) | payer BC, SELFPAY ==
[2023-05-28 14:58] LABS: Absolute Lymphocyte Count 2.29 X10^3/uL (0.83-4.51); Absolute Neutrophil Count 4.5 X10^3/uL (2.0-7.7); Basophil# 0.04 X10^3/uL; Basophil% 0.5 % (0-1); Eosinophil# 0.25 X10^3/uL; Eosinophils% 3.3 % (0-5); Hematocrit 40.8 % (37-47); Hemoglobin 13.5 g/dL (12.0-15.0); Lymphocyte # 2.29 X10^3/ul (0.83-4.51); Lymphocyte % 29.9 % (19-41); Mean Corp Hgb Conc 33.1 g/dL (32-36); Mean Corpuscular Hgb 31.3 pg (27.0-32.0); Mean Corpuscular Volume 94.4 fL (81-99); Mean Platelet Vol. 9.4 fl (6.2-12.0); Monocyte# 0.52 X10^3/uL; Monocyte% 6.8 % (0-10); NRBC Flagged by Analyzer 0 % (0-5); Neutrophil # 4.52 X10^3/uL (2.7-7.7); Neutrophil % 59.1 % (47-70); Platelet Count 331 K/mm3 (150-450); RBC Distribution Width CV 12.3 % (11.6-14.6); RBC Distribution Width SD 42.6 fl (35.1-43.9); Red Blood Count 4.32 M/mm3 (4.2-5.4); White Blood Count 7.7 K/mm3 (4.4-11.0)
[2023-05-28 15:35] LABS: Vitamin D,25 Hydroxy 37.8 ng/mL
[2023-05-28 15:48] LABS: AST(SGOT) 35 U/L (15-37); Alanine Aminotransfer ALT/SGPT 67 U/L (13-56); Alkaline Phosphatase 93 U/L (45-117); Anion Gap 9 (5-15); BUN 11 mg/dL (7-18); BUN/Creat Ratio 11.5 RATIO (10-20); Calcium,Total 9.4 mg/dL (8.5-10.1); Chloride 106 mmol/L (98-107); Creatinine, Serum 0.96 mg/dL (0.55-1.02); EST Glomerular Filtration Rate 63 mL/min (>60); Est Glom Filt Rate - Afr Amer 76 mL/min (>60); Glucose 95 mg/dL (74-106); Magnesium 2.2 mg/dL (1.6-2.6); Potassium 3.6 mmol/L (3.5-5.1); Sodium Level 142 mmol/L (136-145); Thyroid Stim Hormone (TSH) 3.22 uIU/mL (0.358-3.74)
== END | disposition home or self-care (01) ==
LOC: LAB 13:34
PROVIDERS: PCP Internal Medicine; Referring Provider Internal Medicine; Visit Provider Internal Medicine
DX: I10 Essential (primary) hypertension (principal); E87.6 Hypokalemia; G47.33 Obstructive sleep apnea (adult) (pediatric); Z95.5 Presence of coronary angioplasty implant and graft; E55.9 Vitamin D deficiency, unspecified
CPT/HCPCS: 36415; 80053; 82306; 83735; 84443; 85025

== ENCOUNTER → 2023-06-04 | Outpatient (CLI) | payer BC, SELFPAY ==
--- NOTE | 2023-06-04 13:03 | RAD_ITS ---
STUDY: X-RAY - LUMBAR SPINE REASON FOR EXAM: Female, 62 years old. Low back pain. TECHNIQUE: 2 view(s) of the lumbar spine were obtained. COMPARISON: None FINDINGS: Slight increased lordosis. No substantial scoliosis. Normal alignment of the vertebral bodies. Diffuse lower thoracic and lumbosacral facet sclerosis. Mild intervertebral disc space narrowing diffusely without significant osteophyte formation. 2 large calcifications projected over the right upper quadrant compatible with gallstones. 7 mm in diameter calcification projected over upper pole of the right kidney. Vascular calcification. RAD/Lumbar Spine 2 or 3 Views IMPRESSION: Mild diffuse lower thoracic and lumbosacral spondylosis. Probable right nephrocalcinosis and cholelithiasis as described. Electronically Signed: Sebas Pham MD at 14:58 EST ,
== END | disposition home or self-care (01) ==
LOC: MTRAD 13:02
PROVIDERS: PCP Internal Medicine; Referring Provider Internal Medicine; Visit Provider Internal Medicine
DX: M54.50 Low back pain, unspecified (principal)
CPT/HCPCS: 72100

== ENCOUNTER → 2024-02-23 | Outpatient (CLI) | payer BC, SELFPAY ==
[2024-02-23 14:59] LABS: Absolute Lymphocyte Count 2.05 X10^3/uL (0.83-4.51); Basophil# 0.04 X10^3/uL; Basophil% 0.6 % (0-1); Eosinophil# 0.22 X10^3/uL; Eosinophils% 3.2 % (0-5); Hematocrit 39.6 % (37-47); Hemoglobin 12.7 g/dL (12.0-15.0); Lymphocyte # 2.05 X10^3/ul (0.83-4.51); Lymphocyte % 30.1 % (19-41); Mean Corp Hgb Conc 32.1 g/dL (32-36); Mean Corpuscular Hgb 29.3 pg (27.0-32.0); Mean Corpuscular Volume 91.5 fL (81-99); Mean Platelet Vol. 9.3 fl (6.2-12.0); Monocyte# 0.45 X10^3/uL; Monocyte% 6.6 % (0-10); NRBC Flagged by Analyzer 0 % (0-5); Neutrophil # 4.02 X10^3/uL (2.7-7.7); Neutrophil % 59.1 % (47-70); Platelet Count 294 K/mm3 (150-450); RBC Distribution Width CV 12.3 % (11.6-14.6); RBC Distribution Width SD 40.9 fl (35.1-43.9); Red Blood Count 4.33 M/mm3 (4.2-5.4); White Blood Count 6.8 K/mm3 (4.4-11.0)
[2024-02-23 16:09] LABS: ALB/GLOB Ratio 0.9 RATIO (0.9-2.4); AST(SGOT) 19 U/L (15-37); Alanine Aminotransfer ALT/SGPT 29 U/L (13-56); Albumin, Serum 3.6 g/dL (3.2-5.0); Alkaline Phosphatase 76 U/L (45-117); Anion Gap 5 (5-15); BUN 10 mg/dL (7-18); Calcium,Total 9.4 mg/dL (8.5-10.1); Chloride 105 mmol/L (98-107); Cholesterol 172 mg/dL (200); Creatinine, Serum 0.91 mg/dL (0.55-1.02); EST Glomerular Filtration Rate 66 mL/min (>60); Est Glom Filt Rate - Afr Amer 80 mL/min (>60); Glucose 119 mg/dL (74-106); High Density Lipoprotein 36 mg/dL; Protein, Total 7.6 g/dL (6.4-8.2); Sodium Level 139 mmol/L (136-145); Thyroid Stim Hormone (TSH) 2.54 uIU/mL (0.358-3.74); Triglycerides 428 mg/dL
== END | disposition home or self-care (01) ==
LOC: LAB 14:07
PROVIDERS: PCP Internal Medicine; Referring Provider Internal Medicine; Visit Provider Internal Medicine
DX: I10 Essential (primary) hypertension (principal); J43.9 Emphysema, unspecified; E78.5 Hyperlipidemia, unspecified; Z95.5 Presence of coronary angioplasty implant and graft; Z13.220 Encounter for screening for lipoid disorders; E55.9 Vitamin D deficiency, unspecified
CPT/HCPCS: 36415; 80053; 80061; 82306; 84443; 85025

== ENCOUNTER → 2025-01-20 | Outpatient (CLI) | payer BC, SELFPAY ==
[2025-01-20 13:18] LABS: Hematocrit 39.1 % (37-47); Hemoglobin 12.8 g/dL (12.0-15.0); Immature Granulocytes Count 0.020 X10^3/uL (0.0-0.0); Mean Corp Hgb Conc 32.7 g/dL (32-36); Mean Corpuscular Volume 92.2 fL (81-99); Mean Platelet Vol. 9.7 fl (6.2-12.0); NRBC Flagged by Analyzer 0 % (0-5); Platelet Count 289 K/mm3 (150-450); RBC Distribution Width CV 12.4 % (11.6-14.6); RBC Distribution Width SD 42.0 fl (35.1-43.9); Red Blood Count 4.24 M/mm3 (4.2-5.4); White Blood Count 6.6 K/mm3 (4.4-11.0)
[2025-01-20 15:19] LABS: AST(SGOT) 17 U/L (<=31); Alanine Aminotransfer ALT/SGPT 20 U/L (<=34); Albumin, Serum 4.3 g/dL (3.4-4.8); Alkaline Phosphatase 68 U/L (35-104); Anion Gap 11 (5-15); BUN 18 mg/dL (4-19); BUN/Creat Ratio 20.6 RATIO (10-20); Calcium,Total 9.9 mg/dL (7.6-11.0); Carbon Dioxide 26.3 mmol/L (21.0-32.0); Chloride 103 mmol/L (98-108); Cholesterol 186 mg/dL (<=200); Globulin 2.9 g/dL (2.2-4.2); Glucose 98 mg/dL (70-99); Low Density Lipoprotein Calc. 106 mg/dL; Potassium 4.1 mmol/L (3.3-5.1); Triglycerides 186 mg/dL; Very Low Density Lipoprotein 37 mg/dL (5-40); Vitamin D,25 Hydroxy 29.2 ng/mL (30-100); cholesterol:hdl ratio screen 4.31
== END | disposition home or self-care (01) ==
LOC: LAB 12:21
PROVIDERS: PCP Internal Medicine; Referring Provider Internal Medicine; Visit Provider Internal Medicine
DX: N39.0 Urinary tract infection, site not specified (principal); R73.9 Hyperglycemia, unspecified; Z95.5 Presence of coronary angioplasty implant and graft; G47.33 Obstructive sleep apnea (adult) (pediatric); I10 Essential (primary) hypertension; E78.5 Hyperlipidemia, unspecified; E55.9 Vitamin D deficiency, unspecified
CPT/HCPCS: 36415; 80053; 80061; 82306; 83036; 84443; 85025; 87077; 87086; 87088; 87186